=== PATIENT | male | born 1980 | race Caucasian/White ===

== ENCOUNTER 2017-11-12 13:24 | Emergency (ER) | payer MEDICAID ==
[2017-11-12 13:43] VITALS: BP 132/56
--- NOTE | 2017-11-12 13:50 | UC ---
Skin Complaint HPI - HPI Summary HPI Summary: 37 yo male presents with diffuse rash. He tells me that this rash has happened to him at least once every 2-3 months over the last 3-4 years. He was incarcerated during that timeframe and could not see an manufacturer's representative for allergy testing. Says that, while in jail, each time they would give him benadryl, but it would not do anything. 2 days ago pt was outside at a festival and was in contact with a lot of environmental allergens. Last night developed diffuse redness and itching. Denies fever, chills, SOB, chest pain. - History of Current Complaint Chief Complaint: UCSkin Time Seen by Provider: 11/12/17 13:45 Stated Complaint: RASH Hx Obtained From: Patient Onset/Duration: Sudden Onset Skin Exposure Onset/Duration: Hours Ago Current Severity: None Pain Intensity: 0 Pain Scale Used: 0-10 Numeric - Allergy/Home Medications Allergies/Adverse Reactions: Allergies Allergy/AdvReac Type Severity Reaction Status Date / Time No Known Allergies Allergy Verified 11/12/17 13:43 Home Medications: Home Medications Buprenorphine/Naloxone SL TAB* [Suboxone 8-2 mg SL TAB*] 0.5 tab.sl SL DAILY [History Confirmed 11/12/17] Review of Systems Constitutional: Negative Skin: Rash Respiratory: Negative Cardiovascular: Negative Gastrointestinal: Negative Musculoskeletal: Negative Neurological: Negative Psychological: Negative All Other Systems Reviewed And Are Negative: Yes PMH/Surg Hx/FS Hx/Imm Hx - Additional Past Medical History Additional PMH: none - Surgical History Surgical History: None - Family History Known Family History: Positive: None - Social History Lives: With Family Alcohol Use: Occasionally Substance Use Type: Other - Past use Substance Use Comment - Amount & Last Used: subaxone Smoking Status (MU): Heavy Every Day Tobacco Smoker Type: Cigarettes Amount Used/How Often: 1 PPD Physical Exam - Summary Physical Exam Summary: GENERAL: NAD. WDWN. No pain distress. SKIN: B/L forearms, knees, ankles, shoulders with mildly erythematous patches. No open sores. No streaking, bleeding, or drainage. NECK: Supple. Nontender. No lymphadenopathy. CHEST: No accessory muscle use. Breathing comfortably and in no distress. CV: Pulses intact NEURO: Alert. CN II-XII grossly intact. PSYCH: Age appropriate behavior. Triage Information Reviewed: Yes Vital Signs: Initial Vital Signs Temp 98.6 F 11/12/17 13:38 Pulse 58 11/12/17 13:38 Resp 16 11/12/17 13:38 BP 132/56 11/12/17 13:38 Pulse Ox 100 11/12/17 13:38 Vital Signs Reviewed: Yes Course/Dx - Course Course Of Treatment: Suspect contact dermatitis or environmental allergens. Rx for prednisone and steroid cream. Referral made to manufacturer's representative. - Diagnoses Provider Diagnoses: Contact dermatitis Discharge - Sign-Out/Discharge Documenting (check all that apply): Patient Departure - Discharge Plan Condition: Stable Disposition: HOME Prescriptions: predniSONE TAB* [Deltasone 20 MG TAB*] 20 mg PO DAILY #12 tab Triamcinolone 0.1% CREAM (NF) [Kenalog 0.1% Cream (NF)] 1 applic TOPICAL BID #1 tube Patient Education Materials: Dermatitis (ED) Referrals: No Primary Care Phys,NOPCP [Primary Care Provider] - [facility] [Provider Group] - As Soon As Possible Additional Instructions: If you develop a fever, shortness of breath, chest pain, new or worsening symptoms - please call your PCP or go to the ED. 1) Please call to schedule a follow up with [facility] for further allergy testing - Billing Disposition and Condition Condition: STABLE Disposition: Home
== END 2017-11-12 14:10 | disposition home or self-care (01) ==
LOC: UCEAST 13:24
DX: L25.9 Unspecified contact dermatitis, unspecified cause (principal); F17.210 Nicotine dependence, cigarettes, uncomplicated
CPT/HCPCS: 99202; G0463

== ENCOUNTER 2017-11-15 09:20 | Emergency (ER) | payer MEDICAID ==
[2017-11-15 09:30] VITALS: BP 118/65
--- NOTE | 2017-11-15 12:09 | UC ---
Skin Complaint HPI - HPI Summary HPI Summary: SEEN HERE 3 DAYS AGO AND TREATED FOR ALLERGIC DERMATITIS WITH PREDNISONE AND TOPICAL TRIAMCINOLONE. SINCE THEN PATIENT REPORTS THE RASH IS SPREADING AND IS NOW ON HIS TRUNK LOWER EXTREMITIES AND ARMS. NO RESPIRATORY INVOLVEMENT OR TONGUE/LIP SWELLING. PATIENT HAS NOT BEEN TAKING ANY ANTIHISTAMINES. HAS HAD SIMILAR EPISODES EVERY FEW MONTHS FOR THE PAST SEVERAL YEARS. APPOINTMENT WITH [facility] SCHEDULED FOR 12/16/17. DENIES ANY NEW MEDICATIONS OR EXPOSURES. - History of Current Complaint Chief Complaint: UCRash Time Seen by Provider: 11/15/17 10:55 Stated Complaint: RECHECK RASH Hx Obtained From: Patient Onset/Duration: Gradual Onset, Lasting Days, Still Present Timing: Constant Onset Severity: Moderate Current Severity: Moderate Pain Intensity: 0 Pain Scale Used: 0-10 Numeric Location: Diffuse Character: Pruritus, Hives, Redness Aggravating Factor(s): Touch Alleviating Factor(s): Nothing Associated Signs & Symptoms: Positive: Rash. Negative: Nausea, Vomiting, Difficulty Breathing, Fever - Allergy/Home Medications Allergies/Adverse Reactions: Allergies Allergy/AdvReac Type Severity Reaction Status Date / Time No Known Allergies Allergy Verified 11/12/17 13:43 Review of Systems Constitutional: Negative Skin: Rash Respiratory: Negative Cardiovascular: Negative Gastrointestinal: Negative All Other Systems Reviewed And Are Negative: Yes PMH/Surg Hx/FS Hx/Imm Hx Other History Of: Hepatitis C - Surgical History Surgical History: None - Family History Known Family History: Positive: None - Social History Alcohol Use: Occasionally Substance Use Type: None Substance Use Comment - Amount & Last Used: subaxone Smoking Status (MU): Heavy Every Day Tobacco Smoker Type: Cigarettes Amount Used/How Often: 1 PPD Physical Exam Triage Information Reviewed: Yes Appearance: Well-Appearing, No Pain Distress, Well-Nourished Vital Signs: Initial Vital Signs Temp 98 F 11/15/17 09:27 Pulse 95 11/15/17 09:27 Resp 20 11/15/17 09:27 BP 118/65 11/15/17 09:27 Pulse Ox 100 11/15/17 09:27 Vital Signs Reviewed: Yes Eyes: Positive: Conjunctiva Clear ENT: Positive: Hearing grossly normal, Pharynx normal, TMs normal Neck: Positive: Supple Respiratory Exam: Normal Cardiovascular Exam: Normal Abdomen Description: Positive: Soft Musculoskeletal: Positive: No Edema Neurological: Positive: Alert Psychological: Positive: Age Appropriate Behavior Skin: Positive: rashes - ERYTHEMATOUS, IRRITATED, MACULOPAPULAR RASH OVER LOWER ABDOMEN, LOW BACK AND FOREARMS. Course/Dx - Course Course Of Treatment: CALLED [facility] TO SEE IF PT APPT COULD BE MOVED UP. SPOKE TO DR. GANDARA WHO OFFERED PT AN APPT TODAY. HE WILL GO STRAIGHT TO THEIR OFFICE FROM HERE. - Diagnoses Provider Diagnoses: HIVES Discharge - Sign-Out/Discharge Documenting (check all that apply): Patient Departure - Discharge Plan Condition: Stable Disposition: HOME Patient Education Materials: Urticaria (ED) Referrals: Te Gandara MD [Medical Doctor] - (GO DIRECTLY TO DR. GANDARA'S OFFICE FROM HERE) Additional Instructions: DR. GANDARA FROM [facility] WILL WORK YOU IN TODAY. GO DIRECTLY TO THE OFFICE FROM HERE FOR FURTHER EVALUATION. - Billing Disposition and Condition Condition: STABLE Disposition: Home
== END 2017-11-15 11:15 | disposition home or self-care (01) ==
LOC: UCEAST 09:20
DX: L50.9 Urticaria, unspecified (principal)
CPT/HCPCS: 99211; G0463

== ENCOUNTER 2018-05-27 15:04 | Emergency (ER) | payer MEDICAID, OTHER ==
[2018-05-27 18:21] LABS: ABS Basophils 0.1 10^3/ul (0-0.2); ABS Eosinophils 0.4 10^3/ul (0-0.6); ABS Lymphocytes 2.5 10^3/ul (1.0-4.8); ABS Monocytes 0.6 10^3/ul (0-0.8); ABS Neutrophils 4.4 10^3/ul (1.5-7.7); ABS Nucleated RBC 0 10^3/ul; Eosinophil % 5.4 %; Hematocrit 40 % (42-52); Hemoglobin 13.7 g/dl (14.0-18.0); Lymphocyte % 31.8 %; Mean Corpuscular HGB Conc 34 g/dl (31-36); Mean Corpuscular Hemoglobin 32 pg (27-31); Mean Corpuscular Volume 94 fL (80-94); Mean Platelet Volume 7.3 fL (7.4-10.4); Nucleated Red Blood Cells % 0.1; Platelet Count 233 10^3/ul (150-450); Red Blood Count 4.28 10^6/ul (4.00-5.40); Red Cell Distribution Width 13 % (10.5-15)
[2018-05-27 18:29] LABS: INR 0.8 (0.77-1.02)
[2018-05-27 18:42] LABS: Albumin/Globulin Ratio 1.6 (1-3); BUN/Creatinine Ratio 20.3 (8-20); Calcium 8.9 mg/dL (8.6-10.3); EGFR African American 133.5 (>60); EGFR Non-African American 110.4 (>60); Globulin 2.5 g/dL (2-4); Potassium 3.9 mmol/L (3.5-5.0); Total Bilirubin 0.3 mg/dL (0.2-1.0); Total Protein 6.5 g/dL (6.4-8.9)
--- NOTE | 2018-05-27 19:10 | ED ---
Lower Extremity - HPI Summary HPI Summary: Patient complains of bilateral lower extremity swelling 4 days. Denies history of same. Denies cardiac history. Denies new medications, new diet. Denies any other symptoms injury or pain. Medical history is none. - History of Current Complaint Chief Complaint: EDExtremityLower Stated Complaint: BOTH ANKLES AND LEGS SWOLLEN Time Seen by Provider: 05/27/18 16:35 Hx Obtained From: Patient Onset/Duration: Days Severity Initially: Moderate Severity Currently: Moderate Pain Intensity: 4 Pain Scale Used: 0-10 Numeric Timing: Constant Character Of Pain: Dull Associated Signs And Symptoms: Positive: Swelling Aggravating Factor(s): Ambulation, Weight Bearing Alleviating Factor(s): Rest, Elevation Able to Bear Weight: Yes - Allergies/Home Medications Allergies/Adverse Reactions: Allergies Allergy/AdvReac Type Severity Reaction Status Date / Time No Known Allergies Allergy Verified 05/27/18 15:26 PMH/Surg Hx/FS Hx/Imm Hx Endocrine/Hematology History: Denies: Hx Anticoagulant Therapy Cardiovascular History: Denies: Hx Cardiac Arrest History: Denies: Hx Dialysis Sensory History: Denies: Hx Eye Prosthesis Opthamlomology History: Denies: Hx Legally Blind EENT History: Denies: Hx Deafness Neurological History: Denies: Hx Dementia Psychiatric History: Denies: Hx Autism Infectious Disease History: No Infectious Disease History: Reports: Hx Hepatitis - hep C Denies: Traveled Outside the [place] in Last 30 Days - Family History Known Family History: Positive: None - Social History Alcohol Use: None Substance Use Type: Reports: None Substance Use Comment - Amount & Last Used: subaxone Smoking Status (MU): Heavy Every Day Tobacco Smoker Type: Cigarettes Amount Used/How Often: 1 PPD Review of Systems Constitutional: Negative Eyes: Negative ENT: Negative Cardiovascular: Negative Respiratory: Negative Gastrointestinal: Negative Genitourinary: Negative Musculoskeletal: Other Skin: Negative Neurological: Negative Psychological: Normal All Other Systems Reviewed And Are Negative: Yes Physical Exam - Summary Physical Exam Summary: Very minimal swelling to bilateral lower extremity is. PMS intact distally. No erythema, ecchymosis, deformity, extra warmth noted to bilateral lower extremities. Nontender bilaterally. No pain with plantar flexion or dorsiflexion. Triage Information Reviewed: Yes Vital Signs On Initial Exam: Initial Vitals Temp Pulse Resp BP Pulse Ox 98.0 F 77 16 107/60 97 05/27/18 15:25 05/27/18 15:25 05/27/18 15:25 05/27/18 15:25 05/27/18 15:25 Vital Signs Reviewed: Yes Appearance: Positive: Well-Appearing Skin: Positive: Warm Head/Face: Positive: Normal Head/Face Inspection Eyes: Positive: Normal Neck: Positive: Supple Respiratory/Lung Sounds: Positive: Clear to Auscultation Cardiovascular: Positive: Normal Abdomen Description: Positive: Nontender Musculoskeletal: Positive: Normal Neurological: Positive: Normal Psychiatric: Positive: Normal AVPU Assessment: Alert - Tsering Coma Scale Best Eye Response: 4 - Spontaneous Best Motor Response: 6 - Obeys Commands Best Verbal Response: 5 - Oriented Coma Scale Total: 15 Diagnostics - Vital Signs Vital Signs Temp Pulse Resp BP Pulse Ox 05/27/18 15:25 98.0 F 77 16 107/60 97 - Laboratory Lab Results: Lab Results 05/27/18 05/27/18 05/27/18 Range/Units 18:14 18:14 18:15 WBC 8.0 (3.5-10.8) 10^3/ul RBC 4.28 (4.00-5.40) 10^6/ul Hgb 13.7 L (14.0-18.0) g/dl Hct 40 L (42-52) % MCV 94 (80-94) fL MCH 32 H (27-31) pg MCHC 34 (31-36) g/dl RDW 13 (10.5-15) % Plt Count 233 (150-450) 10^3/ul MPV 7.3 L (7.4-10.4) fL Neut % (Auto) 54.4 % Lymph % (Auto) 31.8 % [place] % (Auto) 7.2 % Eos % (Auto) 5.4 % Baso % (Auto) 1.2 % Absolute Neuts (auto) 4.4 (1.5-7.7) 10^3/ul Absolute Lymphs (auto) 2.5 (1.0-4.8) 10^3/ul Absolute Monos (auto) 0.6 (0-0.8) 10^3/ul Absolute Eos (auto) 0.4 (0-0.6) 10^3/ul Absolute Basos (auto) 0.1 (0-0.2) 10^3/ul Absolute Nucleated RBC 0 10^3/ul Nucleated RBC % 0.1 INR (Anticoag Therapy) 0.80 (0.77-1.02) Sodium (135-145) mmol/L Potassium (3.5-5.0) mmol/L Chloride (101-111) mmol/L Carbon Dioxide (22-32) mmol/L Anion Gap (2-11) mmol/L BUN (6-24) mg/dL Creatinine (0.67-1.17) mg/dL Est GFR ( Amer) (>60) Est GFR (Non-Af Amer) (>60) BUN/Creatinine Ratio (8-20) Glucose (70-100) mg/dL Calcium (8.6-10.3) mg/dL Total Bilirubin (0.2-1.0) mg/dL AST (13-39) U/L ALT (7-52) U/L Alkaline Phosphatase (34-104) U/L B-Natriuretic Peptide 97 (<=100) pg/mL Total Protein (6.4-8.9) g/dL Albumin (3.2-5.2) g/dL Globulin (2-4) g/dL Albumin/Globulin Ratio (1-3) 05/27/18 Range/Units 18:15 WBC (3.5-10.8) 10^3/ul RBC (4.00-5.40) 10^6/ul Hgb (14.0-18.0) g/dl Hct (42-52) % MCV (80-94) fL MCH (27-31) pg MCHC (31-36) g/dl RDW (10.5-15) % Plt Count (150-450) 10^3/ul MPV (7.4-10.4) fL Neut % (Auto) % Lymph % (Auto) % [place] % (Auto) % Eos % (Auto) % Baso % (Auto) % Absolute Neuts (auto) (1.5-7.7) 10^3/ul Absolute Lymphs (auto) (1.0-4.8) 10^3/ul Absolute Monos (auto) (0-0.8) 10^3/ul Absolute Eos (auto) (0-0.6) 10^3/ul Absolute Basos (auto) (0-0.2) 10^3/ul Absolute Nucleated RBC 10^3/ul Nucleated RBC % INR (Anticoag Therapy) (0.77-1.02) Sodium 138 (135-145) mmol/L Potassium 3.9 (3.5-5.0) mmol/L Chloride 104 (101-111) mmol/L Carbon Dioxide 28 (22-32) mmol/L Anion Gap 6 (2-11) mmol/L BUN 16 (6-24) mg/dL Creatinine 0.79 (0.67-1.17) mg/dL Est GFR ( Amer) 133.5 (>60) Est GFR (Non-Af Amer) 110.4 (>60) BUN/Creatinine Ratio 20.3 H (8-20) Glucose 115 H (70-100) mg/dL Calcium 8.9 (8.6-10.3) mg/dL Total Bilirubin 0.30 (0.2-1.0) mg/dL AST 33 (13-39) U/L ALT 69 H (7-52) U/L Alkaline Phosphatase 68 (34-104) U/L B-Natriuretic Peptide (<=100) pg/mL Total Protein 6.5 (6.4-8.9) g/dL Albumin 4.0 (3.2-5.2) g/dL Globulin 2.5 (2-4) g/dL Albumin/Globulin Ratio 1.6 (1-3) Result Diagrams: 05/27/18 18:15 05/27/18 18:15 Lab Statement: Any lab studies that have been ordered have been reviewed, and results considered in the medical decision making process. Lower Extremity Course/Dx - Course Course Of Treatment: Patient complains of bilateral lower extremity swelling 4 days. Denies history of same. Denies cardiac history. Denies new medications , new diet. Denies any other symptoms injury or pain. Medical history is none. Physical exam: Very minimal swelling to bilateral lower extremity is. PMS intact distally. No erythema, ecchymosis, deformity, extra warmth noted to bilateral lower extremities. Nontender bilaterally. No pain with plantar flexion or dorsiflexion. Vital signs within normal limits. Labs unremarkable. Follow-up with primary care. - Diagnoses Provider Diagnoses: Peripheral edema Discharge - Sign-Out/Discharge Documenting (check all that apply): Patient Departure Patient Received Moderate/Deep Sedation with Procedure: No - Discharge Plan Condition: Stable Disposition: HOME Patient Education Materials: Leg Edema (ED) Referrals: Andrew Eldridge MD [Primary Care Provider] - Additional Instructions: Follow-up with primary care. Return to the ED for any new or worsening symptoms - Billing Disposition and Condition Condition: STABLE Disposition: Home
[2018-05-27 19:32] VITALS: BP 132/59
== END 2018-05-27 19:31 | disposition home or self-care (01) ==
LOC: ED 15:04
DX: R60.9 Edema, unspecified (principal); F17.210 Nicotine dependence, cigarettes, uncomplicated
CPT/HCPCS: 36415; 80053; 83880; 85025; 85610; 99282